=== PATIENT | female | born 1980 | race Caucasian/White ===

== ENCOUNTER 2024-02-18 11:21 | Outpatient (OUT) | payer OTHER, SELFPAY ==
--- NOTE | 2024-02-18 11:45 | ECG_ITS ---
[facility] Test Date: 2024-02-18 Pat Name: ROC LAMBERT Department: Room: - Gender: Female [employer]: : 1980 Requested By: Order Number: [id number] Reading MD: RIVAS CORTEZ Measurements Intervals [place] Rate: 53 P: 14 MT: 115 QRS: 12 QRSD: 94 T: -3 QT: 406 QTc: 384 Interpretive Statements SINUS BRADYCARDIA WITH SHORT MT INTERVAL No previous ECG available for comparison Electronically Signed On 02-18-2024 20:26:14 EST by RIVAS CORTEZ
== END 2024-02-18 11:22 | disposition home or self-care (01) ==
LOC: PST 11:26
PROVIDERS: Visit Provider Obstetrics & Gynecology
DX: Z01.810 Encounter for preprocedural cardiovascular examination (principal); R10.2 Pelvic and perineal pain; N83.299 Other ovarian cyst, unspecified side
CPT/HCPCS: 93005

== ENCOUNTER 2024-02-20 09:23 | Day surgery (SDC) | payer OTHER, SELFPAY ==
[2024-02-18 11:45] VITALS: BP 126/77; PULSE 52; TEMP 36.2; O2SAT 99; BMI 25.3
[2024-02-20] VITALS (10 sets, daily range): BP systolic 130–151; BP diastolic 75–99; PULSE 54–97; TEMP 36.3; O2SAT 92–100; BMI 25.0
[2024-02-20 09:31] LABS: Basophils Percent Auto 0.5 % (0.2-2.0); Eosinophils Absolute Auto 0.2 10^3/uL (0.0-0.7); Eosinophils Percent Auto 1.9 % (0.9-7.0); Hematocrit 37.7 % (36.0-48.0); Hemoglobin 12.5 g/dL (12.0-16.0); Immature Granulocytes Abs Auto 0.03 10^3/uL (0.00-0.03); Immature Granulocytes Pct Auto 0.4 % (0.0-0.5); Lymphocytes Absolute Auto 1.3 10^3/uL (1.2-3.8); Lymphocytes Percent Auto 15.7 % (20.5-60.0); Mean Corpuscular HGB Conc 33.2 g/dL (29.9-35.2); Mean Corpuscular Hemoglobin 30.1 pg (26.7-34.0); Mean Corpuscular Volume 90.8 fL (81.0-99.0); Mean Platelet Volume 9.8 fL (9.5-13.5); Monocytes Absolute Auto 0.5 10^3/uL (0.3-0.8); Monocytes Percent Auto 6.2 % (1.7-12.0); Neutrophils Absolute Auto 6.5 10^3/uL (1.4-6.5); Neutrophils Percent Auto 75.3 % (43.0-75.0); Platelet Count 310 10^3/uL (150-450); Red Blood Count 4.15 10^6/uL (4.20-5.40); Red Cell Distribution Width 12.5 % (11.0-15.0); White Blood Count 8.6 10^3/uL (4.0-11.0)
[2024-02-20] MEDS: LACTATED RINGER'S SOLUTION 1,000 ML 50 ML IV (10:35)
--- NOTE | 2024-02-20 12:25 | PM.ONB ---
Brief Operative Note Date of procedure: 02/20/24 Pre-op diagnosis general: pelvic pain, rt adnexal mass Post-op diagnosis: same as pre-op Procedure: NAME OF PROCEDURE: robotic assisted bilateral laparoscopic salpingectomy PROCEDURE: The patient was taken back to the Operating Room where she was given general anesthesia without difficulty. She was then prepped and draped in the normal sterile fashion after being placed in a dorsal lithotomy position. A wet sponge stick was placed into the patient's vagina. Attention was then turned to the patient's abdomen, where a scalpel was used to make a small infraumbilical incision. The S retractors were then used to dissect the underlying layers until the fascia could be seen. The fascia was then grasped with Pushpa clamps and tented up. A knife was then used to make a small incision to the fascia. The muscle was identified, at that time two sutures of #0 Vicryl on a GI needle was then used and placed through the fascia. the peritoneum was then identified and entered bluntly. The 10-4 Cris was then placed into the patient's abdomen. This was confirmed with direct visualization of the bowel, using the laparoscope. The patient's abdomen was then insufflated using approximately 4 liters of CO2 gas. Survey of the patient's abdomen demonstrated ovaries were normal in appearance as well as both tubes and uterus. A second and third rt and lt lateral robotic ports which were 8 mm in size, was then placed after the skin incision was made under direct visualization . the robotic arms were engaged. survery of pt abdomen showed normal appearing lt ovary and extensive adhesion of rt ovary to bowel and bladder that was very dense in nature, unable to place stents and need for bowel to be removed off of ovary, procedure was concluded. Excellent hemostasis was noted. The lateral ports were then moved under direct visualization with excellent hemostasis. All instruments were removed from the patient's abdomen. The fascia was closed using the #0 Vicryl on GI needle. The skin was closed using 4-0 Vicryl subcuticularly. All instruments were removed from the patient's vagina as well. The patient was taken out of the dorsal lithotomy position and placed in the supine position and taken to recovery in stable condition. Sponge, lap and needle counts were correct x2. Anesthesia: ANGELES Surgeon: Ozzy Palomares [employer] Superintendent: Irma Danny Estimated blood loss (mL): 5 Pathology: other (pelvic fluid for cytology) Condition: stable Disposition: PACU Urinary Catheter Management Urinary Catheter Management Urethral: Cath placed during this visit: no
[2024-02-20] MEDS: MEPERIDINE HCL/PF 25 MG/ML VIAL IVP (13:01)
[2024-02-20] MEDS: LACTATED RINGER'S SOLUTION 1,000 ML 150 ML IV (13:10)
--- NOTE | 2024-02-20 13:21 | PC.NURSE ---
Shivering; peripad dry
--- NOTE | 2024-02-20 13:26 | PC.NURSE ---
Medicated with Demerol IV as ordered for shivering and surgical pain; peripad dry
--- NOTE | 2024-02-20 13:30 | PC.NURSE ---
No shivering noted; peripad dry
--- NOTE | 2024-02-20 14:42 | PC.NURSE ---
Up to bathroom and voids clear yellow without difficulty; peripad dry
== END 2024-02-20 14:48 | disposition home or self-care (01) ==
PROVIDERS: Visit Provider Obstetrics & Gynecology
PROC: (CPT 840; principal; 2024-02-20 10:40)
DX: R10.2 Pelvic and perineal pain (principal); Z53.09 Procedure and treatment not carried out because of other contraindication; N73.6 Female pelvic peritoneal adhesions (postinfective); K66.0 Peritoneal adhesions (postprocedural) (postinfection); I10 Essential (primary) hypertension; E03.9 Hypothyroidism, unspecified; Z79.890 Hormone replacement therapy; Z79.899 Other long term (current) drug therapy
CPT/HCPCS: 49320; 36415; 85025; 88112; 88305; 99999; J1100; J1885; J2175; J2250; J2405; J2704; J2710; J3010